=== PATIENT | female | born 1955 | race Caucasian/White ===

== ENCOUNTER 2018-05-01 12:30 | Outpatient (CLI) | payer OTHER | END 2018-05-01 12:31 | disposition home or self-care (01) | LOC: BICMRI 12:30 | PROVIDERS: ATTEND Specialist | DX: M51.16 Intervertebral disc disorders with radiculopathy, lumbar region (principal); M47.896 Other spondylosis, lumbar region; M43.16 Spondylolisthesis, lumbar region; M48.061 Spinal stenosis, lumbar region without neurogenic claudication | CPT/HCPCS: 72148 ==

== ENCOUNTER 2018-06-07 13:14 | Outpatient (CLI) | payer OTHER ==
--- NOTE | 2018-06-07 15:43 | MMO ---
BILATERAL SCREENING MAMMOGRAM: Date: 06/07/18 HISTORY: 63-year-old female. Routine screening mammography. COMPARISON: 06/05/17, 05/31/16, 05/26/15. TECHNIQUE: CC and MLO views of both breasts are submitted for interpretation. This patient's mammogram was reviewed with the assistance of computer-aided detection. FINDINGS: The breasts are composed of scattered fibroglandular tissue. In the left breast, there is no suspicious dominant mass, architectural distortion, or suspicious ravi cification. There are benign-appearing calcifications. In the right breast, there is questionable architectural distortion, only appreciated on the CC proje ction along the outer aspect of the right breast. IMPRESSION: BIRADS 0: Incomplete: Need Additional Imaging Evaluation and/or Prior Mammograms for Comparison RECOMMENDATION: Spot view of the right breast in the CC projection, along with a mediolateral view. Ultrasound should be performed if possible architectural distortion persists. The facility will notify patient of need for additional imaging services. POS: ELOY
== END 2018-06-07 13:15 | disposition home or self-care (01) ==
LOC: SCSMAMMO 13:14
PROVIDERS: ATTEND Obstetrics & Gynecology
DX: Z12.31 Encounter for screening mammogram for malignant neoplasm of breast (principal)
CPT/HCPCS: 77067

== ENCOUNTER 2018-06-18 09:47 | Outpatient (CLI) | payer OTHER | END 2018-06-18 09:48 | disposition home or self-care (01) | LOC: BICMAMMO 09:47 | PROVIDERS: ATTEND Obstetrics & Gynecology | DX: N63.10 Unspecified lump in the right breast, unspecified quadrant (principal); Z80.3 Family history of malignant neoplasm of breast | CPT/HCPCS: G0279 ==

== ENCOUNTER 2020-04-08 09:13 | Day surgery (SDC) | payer MEDICARE ==
[2020-04-08] MEDS ORDERED: Glycopyrrolate 0.2 MG/ML 5 ML SYRINGE ONE (09:38)
[2020-04-08] MEDS ORDERED: PHENYLEPHRINE-NS 100 MCG/ML 10 ML SYRINGE ONE (09:38)
[2020-04-08] MEDS ORDERED: Rocuronium Bromide 10 MG/ML (10ML VIAL) ONE (09:38)
[2020-04-08] MEDS ORDERED: Dexamethasone 20 MG/5 ML VIAL ONE (09:38)
[2020-04-08] MEDS ORDERED: PROPOFOL 200 MG/20 ML VIAL ONE (09:38)
[2020-04-08] MEDS ORDERED: Ondansetron PF 4 MG/2 ML Vial ONE (09:38)
[2020-04-08] MEDS ORDERED: Lidocaine 1% PF 5 ML VIAL ONE ×2 (09:38)
[2020-04-08] MEDS ORDERED: Thrombin 5000 UNITS/5 ML VIAL ONE (10:33)
[2020-04-08] MEDS ORDERED: Famotidine/PF 20 mg/2ml Vial ONE (10:55)
[2020-04-08] MEDS ORDERED: Scopolamine 1.5 mg/72 hour Patch ONE (10:59)
[2020-04-08] MEDS ORDERED: Fentanyl 100 MCG/2 ML VIAL ONE ×2 (11:02→14:05)
[2020-04-08] MEDS ORDERED: Ondansetron HCl/PF 4 MG/2 ML Vial IVP PRN (12:41)
[2020-04-08] MEDS ORDERED: PACU-Morphine 4MG/ML VIAL SLOW IVP PRN (12:41)
[2020-04-08] MEDS ORDERED: HYDROmorphone 2 MG/ML VIAL SLOW IVP PRN (12:41)
[2020-04-08] MEDS ORDERED: Morphine Sulfate 2 MG/ML SYRINGE SLOW IVP PRN (12:41)
[2020-04-08] MEDS ORDERED: Promethazine HCl 25 MG/ML VIAL IM PRN (12:41)
[2020-04-08] MEDS ORDERED: Promethazine HCl 25 MG/ML VIAL SLOW IVP PRN (12:41)
[2020-04-08] MEDS ORDERED: diphenhydrAMINE 25 MG CAP PO PRN ×2 (13:19→13:20)
[2020-04-08] MEDS ORDERED: Milk Of Magnesia 30 ML UDCUP PO PRN (13:19)
[2020-04-08] MEDS ORDERED: Bisacodyl 10 MG SUPP PR PRN (13:19)
[2020-04-08] MEDS ORDERED: Acetaminophen/Codeine 30-300mg Tablet PO PRN (13:19)
[2020-04-08] MEDS ORDERED: Acetaminophen 325 MG TAB PO PRN (13:19)
[2020-04-08] MEDS ORDERED: Morphine 2 MG/ML VIAL SLOW IVP PRN (13:19)
[2020-04-08] MEDS ORDERED: Fleet Enema 133 ML BOT PR PRN (13:19)
[2020-04-08] MEDS ORDERED: traMADol HCl 50 MG TAB PO PRN (13:19)
[2020-04-08] MEDS ORDERED: Ondansetron PF 4 MG/2 ML Vial IVP PRN (13:19)
[2020-04-08] MEDS ORDERED: Mag-Al 1200 mg/1200 mg/30 ML UDCUP PO PRN (13:19)
[2020-04-08] MEDS ORDERED: Docusate 100 MG CAP PO PRN (13:20)
[2020-04-08 15:03] VITALS: BMI 24.7
[2020-04-08] MEDS: Baclofen 10 MG TAB PO SCH ×2 (18:14→21:05)
[2020-04-08] MEDS: Sodium Chloride 0.9% 1,000 ML IV SCH (18:14)
[2020-04-08] MEDS: CEFAZOLIN 2 GM in Premix Bag 1 BAG IVPB SCH (18:34)
[2020-04-08] MEDS ORDERED: Atorvastatin Calcium 10 MG TAB PO SCH (21:00)
[2020-04-08] MEDS: Carvedilol 3.125 MG TAB PO SCH (21:05)
[2020-04-08] MEDS: HYDROcodone/Acetaminophen 7.5/325 mg Tablet PO PRN (22:27)
[2020-04-09] MEDS: CEFAZOLIN 2 GM in Premix Bag 1 BAG IVPB SCH (05:17)
[2020-04-09] MEDS: Sodium Chloride 0.9% 1,000 ML IV SCH (05:18)
--- NOTE | 2020-04-09 05:22 | OP ---
DATE OF PROCEDURE: 04/08/2020 LOCATION: OR-12. [employer]: Renea Kelly PA-C PREPROCEDURE DIAGNOSIS: Multilevel lumbar stenosis with low back and left greater than right lower extremity pain. POSTPROCEDURE DIAGNOSIS: Multilevel lumbar stenosis with low back and left greater than right lower extremity pain. PROCEDURES PERFORMED: 1. L3-L4, L4-L5 laminectomies, partial facetectomies, foraminotomies. 2. Left L5-S1 hemilaminotomy, foraminotomy. DESCRIPTION OF PROCEDURE: After informed consent was obtained from the patient, the patient was brought to the OR. Proper patient, pause, and identification were carried out. She was placed under excellent general endotracheal anesthesia and positioned prone on the OR table. All appropriate points were padded. We identified the L3, L4, L5, and S1 dorsal spines and lamina. A linear eliazar was made over this area. This region was sterilely cleansed, prepared, and draped. Proper patient, pause, and identification were carried out. The wound was then opened with a combination of sharp, monopolar, and blunt dissection and the L3-L4 and L4-L5 segments were exposed. Localization film confirmed our area of interest. We then performed a left L5-S1 hemilaminotomy, foraminotomy with excellent decompression of common dural tube and nerve roots. Copious irrigation occurred throughout as did maximizing hemostasis. The wound was then closed in anatomic layers following sprinkling of vancomycin powder. The patient emerged from anesthesia. Job ID: [id number]
[2020-04-09 07:51] VITALS: BP 120/70; TEMP 98.1
--- NOTE | 2020-04-09 07:57 | PRG ---
DATE OF SERVICE: 04/09/2020 Ms. Thomas is postoperative day 1 from lumbar disk decompression. She is doing very well. We will plan for dismissal today. Job ID: [id number]
[2020-04-09] MEDS: Carvedilol 3.125 MG TAB PO SCH (08:17)
[2020-04-09] MEDS: Baclofen 10 MG TAB PO SCH (08:17)
[2020-04-09] MEDS: HYDROcodone/Acetaminophen 7.5/325 mg Tablet PO PRN (08:19)
[2020-04-09] MEDS ORDERED: Amlodipine 10 MG TAB PO SCH (09:00)
[2020-04-09] MEDS ORDERED: Fluticasone Propionate Nasal Spray 16 gm Bottle NASAL SCH (09:00)
[2020-04-09] MEDS ORDERED: Multivit, Therapeutic 1 TAB PO SCH (09:00)
[2020-04-09] MEDS ORDERED: Lysine 500 MG TAB PO SCH (09:00)
[2020-04-09] MEDS ORDERED: Valsartan 80 MG TAB PO SCH (09:00)
[2020-04-09] MEDS ORDERED: Bupropion 150 MG XL TAB PO SCH (09:00)
[2020-04-09] MEDS ORDERED: Cholecalciferol 1,000 UNITS (25 MCG) TAB PO SCH (09:00)
[2020-04-09] MEDS ORDERED: DULoxetine 60 MG CAP PO SCH (09:00)
[2020-04-09] MEDS ORDERED: ESTRADIOL TOP SCH (09:00)
[2020-04-09] MEDS ORDERED: IVERMECTIN TOP SCH (09:00)
[2020-04-09] MEDS ORDERED: Calcium Carbonate 600 MG TAB PO SCH (09:00)
[2020-04-09] MEDS ORDERED: Hydrochlorothiazide 25 MG TAB PO SCH (09:00)
[2020-04-09] MEDS ORDERED: Non-Formulary Item 1 EACH (Biotin [Biotin] 5,000 MCG) PO SCH (09:00)
== END 2020-04-09 11:15 | disposition home or self-care (01) ==
LOC: SDC 09:13 → SURG A 15:10 → SDC 04-09 11:15
PROVIDERS: ATTEND Surgery
PROC: 01NB0ZZ Release Lumbar Nerve, Open Approach (ICD-10-PCS; principal; 2020-04-08)
DX: M48.061 Spinal stenosis, lumbar region without neurogenic claudication (principal); M54.16 Radiculopathy, lumbar region; I10 Essential (primary) hypertension; E78.5 Hyperlipidemia, unspecified; I25.10 Atherosclerotic heart disease of native coronary artery without angina pectoris; M19.90 Unspecified osteoarthritis, unspecified site; Z79.82 Long term (current) use of aspirin; Z79.899 Other long term (current) drug therapy; Z88.6 Allergy status to analgesic agent
CPT/HCPCS: 63047; 63048 ×2; 76000; J2270; J0690; J1100; J2405; J2704; J3010; J3370; S0028

== ENCOUNTER 2020-04-16 14:28 | Emergency (ER) | payer MEDICARE ==
[2020-04-16] MEDS ORDERED: Morphine 4 MG/ML VIAL ONE (15:06)
== END 2020-04-16 17:20 | disposition home or self-care (01) ==
LOC: ERS 14:28
DX: M54.16 Radiculopathy, lumbar region (principal); I10 Essential (primary) hypertension; Z79.899 Other long term (current) drug therapy; Z79.82 Long term (current) use of aspirin
CPT/HCPCS: 96372; 99283; J2270

== ENCOUNTER 2020-04-27 14:27 | Outpatient (CLI) | payer MEDICARE ==
--- NOTE | 2020-04-27 15:12 | ULT ---
EXAM: Bilateral lower extremity venous Doppler US HISTORY: bilateral lower extremity pain FINDINGS: Grayscale, color-flow, Doppler evaluation, spectral analysis of the bilateral lower extremities venou s structures is performed with 2-D imaging. The bilateral common femoral, superficial femoral, popliteal, posterior tibial, proximal greater saphenous and profunda femoral veins are imaged. There is normal luminal compressibility, flow, and augmentation in the visualized deep venous structu res of the bilateral lower extremities. IMPRESSION: No evidence of a deep vein thrombosis in either lower extremity.
--- NOTE | 2020-04-27 16:37 | MRI ---
MRI OF LUMBAR SPINE WITHOUT CONTRAST: 04/27/20 INDICATIONS: Lumbar radiculopathy. Postop lumbar surgery one month ago. Comparison made to preoperative MRI dated 01/07/20. FINDINGS: Lumbar vertebrae maintain height. Vertebral body signal appears normal. There is an anterolisthesis a t L4-5 which was noted previously. Degenerative disc changes at all levels. L1-2: Broad based bulge flattens the thecal sac. Facet arthrosis. Mild central canal stenosis. Asym metric disc bulge laterally to the right with mild right foraminal encroachment. No change from recen t exam. L2-3: Diffuse disc bulge disc bulge flattens the thecal sac. Facet hypertrophy. Mild central canal s tenosis. No significant interval change. There is a cystic mass in the posterior spinal canal central ly and slightly to the left measuring 6 to 7 mm in sagittal plane. 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 This contributes to the central canal stenosis. L3-4: Broad based disc bulge. There is now postoperative changes seen with posterior laminectomy arzola ge. Laminectomy changes seen at L3-4, L4-5 and L5-S1. Posterior high T2 signal is seen in the operati ve site. This may represent packing material. This extends to the epidural space. L4-5: There is an anterolisthesis with diffuse disc bulge and facet arthrosis. There has been signif icant improvement in the central canal stenosis since prior exam. Mild central canal stenosis is now seen where there was previously severe central canal stenosis noted. L5-S1: Shows a diffuse disc bulge and posterior laminectomy change. No significant central canal sten osis. There is high T2 signal seen in the subcutaneous tissues posteriorly at the incision site which exten ds from the L2-3 level to the L5-S1 level measuring 7 cm craniocaudal x approximately 1.5 cm AP dimen srinivas. Subcutaneous seroma, hematoma or abscess are considerations. IMPRESSION: 1. Posterior laminectomy changes are now seen at L3-4, L4-5 and L5-S1. Significant improvement i n the central canal stenosis at these levels when compared to the prior study. High T2 signal is seen in the operative bed posteriorly extending to the epidural space probably representing Gelfoam type packing. 2. There is a high T2 signal collection seen in the subcutaneous tissues posteriorly at the inci srinivas site which could represent fluid collection or hematoma. Recommend clinical correlation. POS: AH
== END 2020-04-27 14:28 | disposition home or self-care (01) ==
LOC: MRI 14:27
PROVIDERS: ATTEND Surgery
DX: M48.062 Spinal stenosis, lumbar region with neurogenic claudication (principal); M79.604 Pain in right leg; M79.605 Pain in left leg; M48.07 Spinal stenosis, lumbosacral region; R93.7 Abnormal findings on diagnostic imaging of other parts of musculoskeletal system
CPT/HCPCS: 72148; 93970

== ENCOUNTER 2021-08-11 10:13 | Outpatient (CLI) | payer MEDICARE ==
[2021-08-11 12:15] LABS: Anion Gap 14 mmol/L (10-20); BUN (Urea Nitrogen) 28 mg/dL (9.8-20.1); Calc. Creatinine Clearance 0 mL/min (70-130); Calcium 9.5 mg/dL (7.8-10.44); Carbon Dioxide 29 mmol/L (23-31); Chloride 100 mmol/L (98-107); Glucose 86 mg/dL (80-115); Potassium 4.5 mmol/L (3.5-5.1); Sodium 138 mmol/L (136-145)
[2021-08-11 17:34] LABS: SARS-CoV-2 PCR by NAA Not Detected (NotDetected)
== END 2021-08-11 10:14 | disposition home or self-care (01) ==
LOC: LABBT 10:13
PROVIDERS: ATTEND Specialist
DX: Z01.812 Encounter for preprocedural laboratory examination (principal); Z20.822 Contact with and (suspected) exposure to COVID-19
CPT/HCPCS: 80048; U0003; U0005

== ENCOUNTER 2021-08-16 08:25 | Day surgery (SDC) | payer MEDICARE ==
[2021-08-10 11:19] VITALS: BMI 26.9
[2021-08-16] MEDS ORDERED: CEFAZOLIN 1 GM VIAL ONE (11:25)
[2021-08-16] MEDS ORDERED: Sodium Chloride 0.9% 100 ML ONE (11:25)
[2021-08-16] MEDS ORDERED: Bupivacaine PF 0.5% 30 ML VIAL ONE (11:37)
[2021-08-16] MEDS ORDERED: EPINEPHrine 1 MG/ML AMP ONE (11:37)
[2021-08-16] MEDS ORDERED: Propofol 1,000 MG/100 ML VIAL IV ONE (11:39)
[2021-08-16] MEDS ORDERED: Fentanyl 100 MCG/2 ML VIAL ONE (11:39)
== END 2021-08-16 14:40 | disposition home or self-care (01) ==
LOC: SDC 08:25
PROVIDERS: ATTEND Specialist
PROC: 0JH70DZ Insertion of Multiple Array Stimulator Generator into Back Subcutaneous Tissue and Fascia, Open Approach (ICD-10-PCS; principal; 2021-08-16)
PROC: 00HU3MZ Insertion of Neurostimulator Lead into Spinal Canal, Percutaneous Approach (ICD-10-PCS; 2021-08-16)
DX: M96.1 Postlaminectomy syndrome, not elsewhere classified (principal); G89.4 Chronic pain syndrome; M54.16 Radiculopathy, lumbar region; M48.061 Spinal stenosis, lumbar region without neurogenic claudication; M43.16 Spondylolisthesis, lumbar region; M46.1 Sacroiliitis, not elsewhere classified; I10 Essential (primary) hypertension; K21.9 Gastro-esophageal reflux disease without esophagitis; M19.90 Unspecified osteoarthritis, unspecified site; Z79.82 Long term (current) use of aspirin; Z79.899 Other long term (current) drug therapy; Z88.6 Allergy status to analgesic agent; Z88.8 Allergy status to other drugs, medicaments and biological substances
CPT/HCPCS: 72020; 76000; C1713; C1778; C1787; C1820; J0171; J0690; J2704; J3010; J3490; L8689; S0020

== ENCOUNTER 2022-09-14 14:18 | Outpatient (CLI) | payer MEDICARE | END 2022-09-14 14:19 | disposition home or self-care (01) | LOC: SCSMRI 14:18 | PROVIDERS: ATTEND Specialist | DX: M51.17 Intervertebral disc disorders with radiculopathy, lumbosacral region (principal); M47.816 Spondylosis without myelopathy or radiculopathy, lumbar region; M47.27 Other spondylosis with radiculopathy, lumbosacral region; Z98.890 Other specified postprocedural states | CPT/HCPCS: 72148 ==

== ENCOUNTER 2023-05-30 09:03 | Outpatient (CLI) | payer MEDICARE | END 2023-05-30 09:04 | disposition home or self-care (01) | LOC: SCSMRI 09:03 | PROVIDERS: ATTEND Specialist | DX: R42 Dizziness and giddiness (principal) | CPT/HCPCS: 70553; 82565 ==

== ENCOUNTER 2023-07-16 11:39 | Outpatient (CLI) | payer MEDICARE | END 2023-07-16 11:40 | disposition home or self-care (01) | LOC: SCSRAD 11:39 | PROVIDERS: ATTEND Nurse Practitioner Family | DX: R07.81 Pleurodynia (principal) ==

== ENCOUNTER 2023-10-26 15:53 | Outpatient (CLI) | payer MEDICARE | END 2023-10-26 15:54 | disposition home or self-care (01) | LOC: SCSRAD 15:53 | PROVIDERS: ATTEND Internal Medicine Rheumatology | DX: M47.812 Spondylosis without myelopathy or radiculopathy, cervical region (principal); M46.02 Spinal enthesopathy, cervical region; M43.12 Spondylolisthesis, cervical region; M89.38 Hypertrophy of bone, other site | CPT/HCPCS: 72052 ==

== ENCOUNTER 2024-07-15 10:46 | Outpatient (CLI) | payer MEDICARE | END 2024-07-15 10:47 | disposition home or self-care (01) | LOC: SCSMRI 10:46 | PROVIDERS: ATTEND Nurse Practitioner Family | DX: M43.16 Spondylolisthesis, lumbar region (principal); M47.816 Spondylosis without myelopathy or radiculopathy, lumbar region | CPT/HCPCS: 72120; 72148 ==